=== PATIENT | female | born 1995 | race Caucasian/White ===

== ENCOUNTER 2020-03-17 20:57 | Emergency (ER) | payer SELFPAY | END 2020-03-17 22:45 | disposition home or self-care (01) | LOC: ERS 20:57 | DX: K03.81 Cracked tooth (principal); K02.9 Dental caries, unspecified; J45.909 Unspecified asthma, uncomplicated; F31.9 Bipolar disorder, unspecified; Z87.891 Personal history of nicotine dependence | CPT/HCPCS: 99282 ==

== ENCOUNTER 2023-11-10 12:12 | Emergency (ER) | payer SELFPAY | END 2023-11-10 13:47 | disposition home or self-care (01) | LOC: ERS 12:12 | DX: J02.9 Acute pharyngitis, unspecified (principal); Z87.891 Personal history of nicotine dependence | CPT/HCPCS: 87081; 87430; 99283 ==